=== PATIENT | female | born 1965 | race Caucasian/White ===

== ENCOUNTER 2016-07-15 15:45 | Inpatient (IN) | payer BC ==
[~2016-07-15] VITALS: Ht 172.7 cm; Wt 72.6 kg
[~2016-07-15 15:45] MED LIST: ATIVAN0.5 MG PO; CELEXA10 MG PO; CORTEF20 MG PO; FLORINEF0.1 MG PO; OPDIVO40 MG/4 ML; XARELTO10 MG PO
[2016-07-15] MEDS ORDERED: COMPAZINE10 MG PO (16:31)
[2016-07-15] MEDS ORDERED: ULTRAM50 MG PO (16:32)
[2016-07-15] MEDS ORDERED: LEVAQUIN750 MG PO (16:32)
[2016-07-15] MEDS ORDERED: AUGMENTIN 875-1 EACH PO (16:33)
[2016-07-15] MEDS ORDERED: FLEXERIL10 MG PO (16:34)
[2016-07-15] MEDS ORDERED: NUCYNTA50 MG PO (16:36)
[2016-07-15] MEDS ORDERED: CORTEF20 MG PO (16:37)
[2016-07-15] MEDS ORDERED: FOLIC ACID1 MG PO (16:38)
== END 2016-07-18 16:17 | disposition short-term general hospital (02) | DRG 194 ==
LOC: ER 15:45 → IP 19:13 → ER 19:13 → IP 07-18 16:17
PROVIDERS: ADMIT Family Medicine
PROC: 30233N1 Transfusion of Nonautologous Red Blood Cells into Peripheral Vein, Percutaneous Approach (ICD-10-PCS; principal; 2016-07-16)
PROC: 3E0F7GC Introduction of Other Therapeutic Substance into Respiratory Tract, Via Natural or Artificial Opening (ICD-10-PCS; principal; 2016-07-16)
PROC: 30233N1 Transfusion of Nonautologous Red Blood Cells into Peripheral Vein, Percutaneous Approach (ICD-10-PCS; 2016-07-17)
DX: J18.9 Pneumonia, unspecified organism (principal); C34.90 Malignant neoplasm of unspecified part of unspecified bronchus or lung; C78.7 Secondary malignant neoplasm of liver and intrahepatic bile duct; C79.70 Secondary malignant neoplasm of unspecified adrenal gland; D64.9 Anemia, unspecified; E87.6 Hypokalemia; F41.8 Other specified anxiety disorders
CPT/HCPCS: A9150; J1650; J1940; J1956; J2543; J2930; J8499; Q9963; Q9967